=== PATIENT | female | born 1950 | race African-American/Black ===

== ENCOUNTER 2019-08-02 09:20 | Observation (INO) | payer OTHER ==
[2019-08-02] VITALS (11 sets, daily range): BP systolic 93–111; BP diastolic 56–68
[~2019-08-02] VITALS: Ht 165.1 cm; Wt 128.8 kg
--- NOTE | ~2019-08-02 | H ---
[address] [address] HISTORY AND PHYSICAL Name: ABIOLA WASSERMAN Room: [address] Bassam Mora#: [id number] Admission: 08/02/19 Attend Phys: Ryan Edge MD, Discharge: 08/03/19 Date of : 48 Report #: [id number] THIS REPORT FOR: //name// Please refer to the History and Physical performed in the physician's office. By: [id number] Records Staff RANI /PAMELLA
[~2019-08-02 09:20] MED LIST: AZOR 10-20 MG1 EACH PO; BISOPROLOL FUMAR5 MG PO; CHLORTHALIDONE25 MG PO; GAS RELIEF180 M1 PO; GAS-X180 MG PO; IMDUR 30 MG TAB30 M1 PO; KLOR-CON 1010 MEQ; KLOR-CON 1010 MEQ PO; LISINOPRIL20 MG PO; LISINOPRIL40 MG PO; MINIPRIN81 MG PO; NITROGLYCERIN0.4 MG SL; OMEGA-3 + VITA200 ML PO; PEPCID COMPLET1 EACH PO; PLAVIX 75 MG TA75 MG PO; PRAVASTATIN SOD20 MG PO; ULTRAM 50MG TAB50 MG PO; XANAX 0.25 MG0.25 MG PO; ZIAC 2.5-6.251 EACH PO
[2019-08-02 12:01] LABS: HEMATOCRIT 38.3 % (37.0-47.0); HEMOGLOBIN 12.8 gm/dL (12.0-15.0); MCH 32.9 pg (26.0-34.0); MCHC 33.5 g/dL (28.0-37.0); MCV 98.3 fL (80.0-100.0); MPV 7.7 fl. (7.2-11.1); RBC 3.89 mil/uL (4.20-5.00); RDW-CV 14.2 % (10.5-14.5); WBC 3.7 thou/uL (4.0-11.0)
[2019-08-02 12:06] LABS: ANION GAP 8 mmol/L (7-16); BUN 39 mg/dL (7-18); CALCIUM 9.7 mg/dL (8.5-10.1); CHLORIDE 104 mmol/L (98-107); CO2 27 mmol/L (21-32); CREATININE 1.2 mg/dL (0.6-1.3); GLUCOSE 93 mg/dL (70-99); POTASSIUM 4.7 mmol/L (3.5-5.1); SODIUM 139 mmol/L (136-145)
[2019-08-02 12:07] LABS: APTT 24.5 Seconds (25.0-31.3); PROTIME 10.5 Seconds (9.20-11.50)
[2019-08-02 12:10] LABS: ALBUMIN 3.7 g/dL (3.4-5.0); ALKALINE PHOSPHATASE 70 U/L (46-116); CHOLESTEROL 132 mg/dL (<200); HDL CHOLESTEROL 69 mg/dL (>40); LDL CHOLESTEROL 60 mg/dL (<100); SGOT 25 U/L (15-37); SGPT 27 U/L (30-65); TC:HDL 1.9 Ratio (Not establshd); TOTAL BILIRUBIN 0.4 mg/dL (<0.1-1.0); TOTAL PROTEIN 7.7 g/dL (6.4-8.2); TRIGLYCERIDE 18 mg/dL (<150); VLDL 4 mg/dL (<40)
[2019-08-02 12:11] LABS: SERUM ASSESSMENT Clear
[2019-08-02] MEDS ORDERED: SPIRONOLACTONE25 M1 PO (12:31)
[2019-08-02] MEDS ORDERED: FLONASE 0.05%50 MCG NASAL (17:32)
--- NOTE | 2019-08-02 18:07 | NUR ---
PT ADMITTED TO TELEMETRY ROOM 204 POST CARDIAC CATH. INSERTION SITE TO RIGHT GROIN, DRESSING C/D/I, NO HEMATOMA PRESENT. VSS. PT DENIES PAIN, SOA, N/V/D. PT ORIENTED TO ROOM AND CALL LIGHT, VOICES UNDERSTANDING. TRACING SB ON MONITOR. ASSESSMENT COMPLETED CHARTED. HOURLY ROUNDING AND FALL PRECAUTIONS IN PLACE FOR PT SAFETY. PT REMAINS ON BEDREST UNTIL 2144. CLWR.
--- NOTE | 2019-08-02 18:15 | EKG ---
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
[2019-08-03] VITALS: BP 104/53
--- NOTE | 2019-08-03 02:06 | NUR ---
PT ALERT ORIENTED. POST CATH R GROIN SITE SOFT NO BRUSING NOTED. DRSG D/I. UP AT 2145. THEN BACK TO BED. HYDROCODONE GIVEN ONCE FOR R KNEE PAIN. TELEMETRY SHOWS SR.
[2019-08-03 04:00] VITALS: BP 114/72
[2019-08-03 04:40] LABS: HEMATOCRIT 33.2 % (37.0-47.0); HEMOGLOBIN 11.2 gm/dL (12.0-15.0); MCHC 33.8 g/dL (28.0-37.0); MCV 97.7 fL (80.0-100.0); MPV 7.2 fl. (7.2-11.1); RBC 3.4 mil/uL (4.20-5.00); RDW-CV 14.4 % (10.5-14.5); WBC 4.1 thou/uL (4.0-11.0)
[2019-08-03 05:13] LABS: ALBUMIN 3.1 g/dL (3.4-5.0); CALCIUM 9.1 mg/dL (8.5-10.1); POTASSIUM 4.1 mmol/L (3.5-5.1); TOTAL BILIRUBIN 0.2 mg/dL (<0.1-1.0); TOTAL PROTEIN 6.4 g/dL (6.4-8.2)
[2019-08-03 05:14] LABS: TROPONIN-I LEVEL 5.97 ng/mL (<0.06)
[2019-08-03 10:20] VITALS: BP 93/68
--- NOTE | 2019-08-03 10:23 | NUR ---
PT A/O. TELE TRACKING SR AND ALL VSS ON ROOM AIR. DENIES CP, SOA. RIGHT GROIN CDI, NO HEMATOMA. PT LOOKING FORWARD TO DC TODAY. EDUCATED ON SAFETY AND PLAN OF CARE. PLEASE SEE ASSESSMENT FOR ADDITIONAL INFORMATION. WILL CONT TO MONITOR
[2019-08-03] MEDS ORDERED: BRILINTA90 MG PO (10:41)
[2019-08-03 10:42] VITALS: BP 93/68
--- NOTE | 2019-08-03 14:14 | D ---
[address] [address] DISCHARGE SUMMARY Name: ABIOLA WASSERMAN Room: [address] Bassam Mora#: [id number] Admission: 08/02/19 Attend Phys: Ryan Edge MD, Discharge: 08/03/19 Date of : 48 Report #: [id number] THIS REPORT FOR: //name// CC: Ryan Palacio Jose Arlene DATE OF SERVICE: 08/03/2019 FINAL DISCHARGE DIAGNOSES: 1. Abnormal nuclear stress test. 2. Coronary artery disease. 3. Status post percutaneous coronary intervention of the obtuse marginal branch of the circumflex. 4. Hyperlipidemia. 5. Hypertension. PROCEDURES: On 08/02/2019, left heart catheterization, left ventriculography, selective coronary arteriography, and percutaneous coronary intervention with stenting of the first marginal branch of the circumflex. HISTORY OF PRESENT ILLNESS/HOSPITAL COURSE: The patient is a very pleasant 69-year-old female with underlying hypertension, hyperlipidemia, and coronary artery disease. Recent nuclear stress test revealed abnormality with inducible inferior and inferolateral ischemia. I performed cardiac catheterization in this context on 08/02/2019, which revealed widely patent right coronary and left anterior descending stents. She had tandem 90% and 75% [id number]-ra-[id number] stenosis in the first marginal branch of the circumflex with stents also deployed in that vessel. I performed percutaneous coronary intervention deploying one 2.0 x 8 mm Kiel drug-eluting stent in the mid portion of the obtuse marginal branch. I was unable to deliver a stent to the more distal lesion, which remained at 75%. The patient did well post-procedurally. Troponin did rise to 5.97. She had no recurrent chest discomfort and ambulated without difficulty. There was good hemostasis at the right femoral site of catheterization. Laboratory data on 08/03 revealed sodium 140, potassium 4.1, BUN 29, down from 39, creatinine 1.0, down from 1.2, glucose 95; hemoglobin 11.2, white blood cell count 4100 with 173,000 platelets; cholesterol 132, HDL 69, LDL 60, triglycerides 18. The patient was discharged to home on the following medications: Aspirin 81 mg daily, fluticasone 1 spray b.i.d., fish oil liquid 1 mL every other day, [place] [address] DISCHARGE SUMMARY Name: ABIOLA WASSERMAN Room: [address] Bassam Mora#: [id number] Admission: 08/02/19 Attend Phys: Ryan Edge MD, Discharge: 08/03/19 Date of : 48 Report #: [id number] pravastatin 20 mg at bedtime, spironolactone 25 mg daily, ticagrelor or Brilinta 90 mg b.i.d. with 180 mg loading dose as well as p.r.n. sublingual nitroglycerin. The patient is scheduled to return to see our nurse practitioner in 7-10 days with subsequent followup with Dr. Lal. <ELECTRONICALLY SIGNED> By: Ryan Edge MD, FACC 08/03/19 1414 1022 [id number] Edge MD, FACC /nt
--- NOTE | 2019-08-04 12:38 | CARD ---
[address] [address] CARDIAC CATH REPORT Name: ABIOLA WASSERMAN Room: [address] Bassam Mora#: [id number] Admission: 08/02/19 Attend Phys: Ryan Edge MD, Discharge: 08/03/19 Date of : 48 Report #: [id number] THIS REPORT FOR: //name// APPROVED REPORT Study performed: 08/02/2019 13:22:34 Patient Details Patient Status: In-Patient Room #: The patient is a 69 year-old female Event Personnel Ryan Edge Market Superintendent, Kimberly Velásquez [employer] Boards Stripper Etcher, Bora Santana Scrub, Remedios Beckwith RTCris Monitor Procedures Performed Art Access - R femoral artery* Left Heart Cath w/or w/o Coronaries [id number] [facility] [address] [address] w/wo Plasty Single [place] [id number] Hemostasis w/ Angioseal Indication Positive stress test Risk Factors Hypercholesterolemia, Hypertension Previous Procedures/Diagnoses Previous PCI Admission/Lab Medications/Medications given during procedure Angiomax IV bolus 19.5 mg per kg, Angiomax Drip IV 45.5 ml per hr, Ticagrelor PO 180 mg, Aspirin PO 162 mg Procedure Narrative The patient was brought electively to the Cardiac Catheterization Laboratory and was prepped and draped in a sterile manner. The right femoral was infiltrated with 2% Lidocaine subcutaneous anesthesia. A Alexander 6 FR sheath was inserted into the right femoral artery. Coronary angiography was performed using coronary diagnostic catheters. The right coronary system was accessed and visualized with a 6F JR4 catheter. The left coronary system was accessed and visualized with a 6F JL4 catheter. The left ventricle was accessed and visualized with a 5F PIGTAIL catheter. Left ventricular/Aortic Valve gradient assessed via catheter pullback[place] [address] CARDIAC CATH REPORT Name: ABIOLA WASSERMAN Room: [address]#: [id number] Admission: 08/02/19 Attend Phys: Ryan Edge MD, Discharge: 08/03/19 Date of : 48 Report #: [id number] was performed in JIMÉNEZ projection. Pre-demployment femoral angiogram was performed . The patient tolerated the procedure well and there were no complications associated with the procedure. There was no hematoma. Intraoperative Conscious Sedation Sedation start time: 13:56 Case end Time: 15:46 Fentanyl 7546.0 mcg Versed 2 mg Fluoro Time: 29.5 minutes Dose: DAP 307799 cGycm2 3536 mGy Contrast Type and Amount: Visipaque 490 ml Diagnostic Cath Left Main 0% narrowing LAD 0% narrowing with widely patent mid LAD stent Circumflex Tandem 90 and 75% stenosis of the mid and distal portions of the first marginal branch of the nondominant circumflex Right Coronary 0% narrowing of the widely patent distal stent Left Ventriculography The left ventricle is normal in size with normal contractility. The left ventricular ejection fraction is estimated to be 60%. Left ventricular wall motion abnormalities are not present. There is no mitral insufficiency. Hemodynamics The aortic pressure is 136/50 mmHg with a mean of 56 mmHg. The left ventricular pressure is 111/1 mmHg with a mean of mmHg. The left ventricular end diastolic pressure is 12 mmHg. PCI Technique Lesion Anticoagulation was achieved with Angiomax. Patient was preloaded with Angiomax IV BOLUS 19.5 mg per kg. Percutaneous coronary intervention was performed on the first obtuse marginal branch segment. The lesion stenosis prior to intervention was 90% with FELICITAS 3 flow. A 6FR XB 3.5 100CM Guide Catheter was used to engage the LCA ostium. A IG: BMW 190cm Interventional Guidewire was used to cross the lesion. BALLOON DILATION A Balloon catheter Mini Trek RX 2.0 X 8 was inserted and inflated up to 10.00atm for 10seconds. Additional Inflation: 12.00atm for 20seconds. Additional Inflation: 16.00atm for 10seconds. 2 MINI TREK RX 2.0/[place] [address] CARDIAC CATH REPORT Name: ABIOLA WASSERMAN Room: [address] Bassam Mora#: [id number] Admission: 08/02/19 Attend Phys: Ryan Edge MD, Discharge: 08/03/19 Date of : 48 Report #: [id number] STENT DEPLOYMENT A drug-eluting stent Kiel RX Stent 2.0X8mm was inserted and inflated up to 10.00atm for 6seconds. Additional Inflation: 12.00atm for 8seconds. Final angiography reveals 0 % stenosis with FELICITAS 3 flow. COMMENTS I was able to traverse and stent the 90% mid first marginal stenosis but was unable to cross the more distal 75% marginal narrowing Conclusion #1 coronary artery disease characterized by the following: A 0% LAD narrowing with widely patent mid LAD stent B tandem 90% mid and 75% distal stenoses of the first marginal branch of the nondominant circumflex C dominant right coronary artery with a widely patent distal right coronary stent and 0% narrowing #2 normal left ventricular systolic function, estimate ejection fraction being 60% #3 normal left-sided hemodynamics study #4 successful percutaneous coronary intervention with deployment of a drug-eluting stent at site of 90% mid first marginal stenosis with 0% residual narrowing Recommendations Cardiac Risk Reduction Program Aggressive Medical Therapy Medications Administered Aspirin (any) [place] [address] CARDIAC CATH REPORT Name: ABIOLA WASSERMAN Room: [address] Bassam Mora#: [id number] Admission: 08/02/19 Attend Phys: Ryan Edge MD, Discharge: 08/03/19 Date of : 48 Report #: [id number] Diagnostic Cath Approved by: Ryan Edge MD Date/Time: 08/04/2019 12:35:09 <ELECTRONICALLY SIGNED> By: Ryan Edge MD, FAC 08/04/19 1238 1238 1238Ryan Edge MD, FAC /INF
== END 2019-08-03 12:25 | disposition home or self-care (01) ==
LOC: M.CL 09:20 → M.TBA-CV 16:27 → M.2W 16:58
PROVIDERS: ADMIT Internal Medicine
DX: I25.10 Atherosclerotic heart disease of native coronary artery without angina pectoris (principal); E78.5 Hyperlipidemia, unspecified; I10 Essential (primary) hypertension; F17.201 Nicotine dependence, unspecified, in remission; I25.2 Old myocardial infarction; M19.90 Unspecified osteoarthritis, unspecified site; Z79.899 Other long term (current) drug therapy; Z23 Encounter for immunization